=== PATIENT | female | born 1935 | race Caucasian/White ===

== ENCOUNTER 2017-09-14 21:28 | Emergency (ER) | payer MEDICARE ==
[~2017-09-14] VITALS: Ht 160 cm; Wt 66.2 kg
== END 2017-09-14 21:59 | disposition left against medical advice (07) ==
LOC: ER 21:28
DX: L03.811 Cellulitis of head [any part, except face] (principal)

== ENCOUNTER 2018-08-15 20:43 | Emergency (ER) | payer MEDICARE ==
[~2018-08-15] VITALS: Ht 160 cm; Wt 66.2 kg
--- NOTE | 2018-08-15 23:01 | Diagnostic Imaging Report ---
EXAMINATION: CHEST 2 VIEWS INDICATION: Chest pain. Shortness of breath. Coughing. COMPARISON: None FINDINGS: TUBES and LINES: None. LUNGS: Bilateral hyperinflation. Left basilar subsegmental atelectasis. Bilateral perihilar, peribronchial thickening. There is no evidence of pneumonia or pulmonary edema. PLEURA: No pleural effusion or pneumothorax. Biapical pleural-parenchymal scarring. HEART AND MEDIASTINUM: The cardiomediastinal silhouette is unremarkable. BONES AND SOFT TISSUES: No acute osseous lesion. Soft tissues are unremarkable. UPPER ABDOMEN: No free air under the diaphragm. IMPRESSION: Probable COPD. No consolidative pneumonia Signed by: Dr. La Young M.D. on 08/15/2018 10:58 PM
== END 2018-08-15 23:45 | disposition home or self-care (01) ==
LOC: ER 20:43
DX: R05 Cough (principal); J20.9 Acute bronchitis, unspecified; I10 Essential (primary) hypertension; F41.9 Anxiety disorder, unspecified; F32.9 Major depressive disorder, single episode, unspecified; K21.9 Gastro-esophageal reflux disease without esophagitis; Z98.0 Intestinal bypass and anastomosis status
CPT/HCPCS: 71046; 93005; 99282

== ENCOUNTER 2019-01-29 17:51 | Emergency (ER) | payer MEDICARE ==
[~2019-01-29] VITALS: Ht 160 cm; Wt 66.2 kg
--- OUTSIDE RECORDS SUMMARY | 2019-01-29 17:54 | XMS REPORT ---
Author Author [facility] Address Unknown Phone Unavailable Care Team Providers Care Design Engineer Name Role Phone Pat WALTER Unavailable Unavailable Problems This patient has no known problems. Allergies, Adverse Reactions, Alerts This patient has no known allergies or adverse reactions. Medications This patient has no known medications. Results Test Description Test Time Test Comments Text Results Atomic Results Result Comments CHEST 2 VIEWS 2018-08-15 22:56:00 [place] [address] Patient Name: PANCHO MORALES MR #: [id number] : 1935 Age/Sex: 83/F Req #: [id number] [facility] Physician: Ordered by: JOHANNY WALTER MD Report #: [id number] Location: ER Room/Bed: Procedure: [id number] DX/CHEST 2 VIEWS Exam Date: 08/15/18 Exam Time: 2147 REPORT STATUS: Signed EXAMINATION: CHEST 2 VIEWS INDICATION: Chest pain. Shortness of breath. Coughing. COMPARISON: None FINDINGS: TUBES and LINES: None. LUNGS: Bilateral hyperinflation. Left basilar subsegmental atelectasis. Bilateral perihilar, peribronchial thickening. There is no evidence of pneumonia or pulmonary edema. PLEURA: No pleural effusion or pneumothorax. Biapical pleural-parenchymal scarring. HEART AND MEDIASTINUM: The cardiomediastinal silhouette is unremarkable. BONES AND SOFT TISSUES: No acute osseous lesion. Soft tissues are unremarkable. UPPER ABDOMEN: No free air under the diaphragm. IMPRESSION: Probable COPD. No consolidative pneumonia Signed by: Dr. La Young M.D. on 08/15/2018 10:58 PM Dictated By: DEBRA YOUNG MD, MD 57 Transcribed By: YAKELIN on 08/15/182257 COPY TO: JOHANNY WALTER MD
[2019-01-29 19:06] VITALS: BP 161/72
== END 2019-01-29 19:08 | disposition home or self-care (01) ==
LOC: ER 17:51
DX: L02.01 Cutaneous abscess of face (principal); I10 Essential (primary) hypertension; F41.9 Anxiety disorder, unspecified; F32.9 Major depressive disorder, single episode, unspecified; K21.9 Gastro-esophageal reflux disease without esophagitis; Z98.0 Intestinal bypass and anastomosis status
CPT/HCPCS: 99282

== ENCOUNTER 2020-01-13 22:57 | Emergency (ER) | payer MEDICARE ==
[~2020-01-13] VITALS: Ht 160 cm; Wt 70.3 kg
[2020-01-14 00:19] LABS: BASOPHILS % 0.4 % (0.0-1.0); EOSINOPHILS # (AUTO) 0.1 (0.0-0.4); EOSINOPHILS % 1.2 % (0.0-6.0); HEMATOCRIT 42.1 % (34.2-44.1); HEMOGLOBIN 13.8 g/dL (12.0-16.0); LYMPHOCYTES # (AUTO) 1.3 (1.0-3.2); LYMPHOCYTES % 12.3 % (18.0-39.1); MEAN CORPUSCULAR HEMOGLOBIN 30.3 pg (28-32); MEAN CORPUSCULAR HGB CONC 32.8 g/dL (31-35); MEAN CORPUSCULAR VOLUME 92.5 fL (81-99); MONOCYTES # (AUTO) 0.7 (0.2-0.8); MONOCYTES % 6.5 % (4.4-11.3); NEUTROPHILS # (AUTO) 8.2 (2.1-6.9); NEUTROPHILS % 79.1 % (38.7-80.0); PLATELET COUNT 210 x10e3/uL (140-360); RED BLOOD COUNT 4.55 x10e6/uL (3.6-5.1)
[2020-01-14] MEDS ORDERED: SODIUM CHLORIDE 0.9% 1000ML 1,000 ML IV STA (00:32)
[2020-01-14] MEDS ORDERED: ONDANSETRON HCL INJ 2MG/ML 2ML 2 MG/ML VIAL IV STA (00:32)
[2020-01-14 00:36] LABS: ALBUMIN 4.1 g/dL (3.5-5.0); ALBUMIN/GLOBULIN RATIO 1.4 (0.8-2.0); ANION GAP 15.7 mmol/L (8-16); CREATININE, SERUM 0.94 mg/dL (0.57-1.11); POTASSIUM 3.7 mmol/L (3.5-5.1)
[2020-01-14 00:45] LABS: BILIRUBIN,URINE NEGATIVE (NEGATIVE); CLARITY,URINE CLEAR (CLEAR); COLOR,URINE YELLOW (YELLOW); KETONES,URINE NEGATIVE (NEGATIVE); LEUKOCYTE ESTERASE ,URINE SMALL (NEGATIVE); NITRITE,URINE NEGATIVE (NEGATIVE); PROTEIN,URINE DIPSTICK NEGATIVE (NEGATIVE); URINE UROBILINOGEN 0.2 mg/dL (0.2 - 1)
[2020-01-14 00:50] LABS: AMORPHOUS SEDIMENT,URINE MODERATE (FEW); BACTERIA,URINE FEW /HPF; EPITHELIAL CELLS,URINE FEW /LPF; RBC,URINE 0-5 /HPF (0-5)
[2020-01-14] MEDS ORDERED: CEFTRIAXONE SOD 1 GM/NS 50 ML 50 ML IV ONE ×2 (01:00→01:09)
--- NOTE | 2020-01-14 01:32 | Emergency Department Note ---
History of Present Illnes History of Present Illness Chief Complaint: Abdominal Complaints History of Present Illness This is a 84 year old female arrived to the ED with diffuse abdominal pain for several hours . Chief Complaint Comment pt c/o epigastric pain with nausea and vomiting that started about 1 month ago when she started taking tylenol with codeine that was prescribed by her dentist, pain started again at 1930 today Historian: Patient Arrival Mode: Car Onset (how long ago): hour(s) Radiation: Reports non-radiation Severity: mild Onset quality: sudden Duration (how long): hour(s) Timing of current episode: constant Progression: partially resolved Chronicity: new Relieving factors: none Past Medical/Family History Physician Review I have reviewed the patient's past medical and family history. Any updates have been documented here. Past Medical History Recent Fever: No Clinical Suspicion of Infectio: No New/Unexplained Change in Ment: No Past Medical History: GERD Other Medical History: ARTHRITIS GERD Past Surgical History: None Other Surgery: COLON SURGERY Social History Smoking Cessation: Never Smoker Other Last Tetanus: UTD Review of Systems ROS Narrative Unable to obtain ROS: Unable to obtain due to Review of Systems Constitutional: Reports no symptoms EENTM: Reports no symptoms Cardiovascular: Reports no symptoms Respiratory: Reports no symptoms Gastrointestinal: Reports as per HPI, Reports abdominal pain, Reports nausea Genitourinary: Reports no symptoms Musculoskeletal: Reports no symptoms Integumentary: Reports no symptoms Neurological: Reports no symptoms Psychological: Reports no symptoms Endocrine: Reports no symptoms Hematological/Lymphatic: Reports no symptoms Physical Exam Related Data Allergies: Coded Allergies: codeine (Verified Allergy, Unknown, 01/13/20) abdominal pain/nausea Triage Vital Signs Vital Signs Date Time Temp Pulse Resp B/P (MAP) Pulse Ox O2 Delivery O2 Flow Rate FiO2 01/13/20 23:33 98.2 93 20 169/72 97 Room Air Vital signs reviewed: Yes Physical Exam CONSTITUTIONAL Constitutional: Present well-developed, Present well-nourished HENT HENT: Present normocephalic, Present atraumatic, Present oropharynx clear/moist, Present nose normal HENT L/R: Present left ext ear normal, Present right ext ear normal EYES Eyes: Reports PERRL, Reports conjunctivae normal NECK Neck: Present ROM normal PULMONARY Pulmonary: Present effort normal, Present breath sounds normal CARDIOVASCULAR Cardiovascular: Present regular rhythm, Present heart sounds normal, Present capillary refill normal, Present normal rate GASTROINTESTINAL Abdominal: Present soft, Present nontender, Present bowel sounds normal GENITOURINARY Genitourinary: Present exam deferred SKIN Skin: Present warm, Present dry MUSCULOSKELETAL Musculoskeletal: Present ROM normal NEUROLOGICAL Neurological: Present alert, Present oriented x 3, Present no gross motor or sensory deficits PSYCHOLOGICAL Psychological: Present mood/affect normal, Present judgement normal Results Laboratory Result Diagram: 01/14/20 0000 01/14/20 0000 Laboratory Laboratory Tests Test 01/14/20 00:30 01/14/20 00:00 Urine Color Yellow (YELLOW) Urine Clarity Clear (CLEAR) Urine pH 8 (5 - 7) Urine Specific [place] 1.020 (1.010-1.025) Urine Protein Negative (NEGATIVE) Urine Glucose (UA) Negative (NEGATIVE) Urine Ketones Negative (NEGATIVE) Urine Blood Small (NEGATIVE) Urine Nitrite Negative (NEGATIVE) Urine Bilirubin Negative (NEGATIVE) Urine Urobilinogen 0.2 mg/dL (0.2 - 1) Urine Leukocyte Esterase Small (NEGATIVE) Urine RBC 0-5 /HPF (0-5) Urine WBC 6-10 /HPF (0-5) Urine Epithelial Cells Few /LPF (NONE) Urine Amorphous Sediment Moderate (FEW) Urine Bacteria Few /HPF (NONE) White Blood Count 10.41 x10e3/uL (4.8-10.8) Red Blood Count 4.55 x10e6/uL (3.6-5.1) Hemoglobin 13.8 g/dL (12.0-16.0) Hematocrit 42.1 % (34.2-44.1) Mean Corpuscular Volume 92.5 fL (81-99) Mean Corpuscular Hemoglobin 30.3 pg (28-32) Mean Corpuscular Hemoglobin Concent 32.8 g/dL (31-35) Red Cell Distribution Width 13.0 % (11.7-14.4) Platelet Count 210 x10e3/uL (140-360) Neutrophils (%) (Auto) 79.1 % (38.7-80.0) Lymphocytes (%) (Auto) 12.3 % (18.0-39.1) Monocytes (%) (Auto) 6.5 % (4.4-11.3) Eosinophils (%) (Auto) 1.2 % (0.0-6.0) Basophils (%) (Auto) 0.4 % (0.0-1.0) Neutrophils # (Auto) 8.2 (2.1-6.9) Lymphocytes # (Auto) 1.3 (1.0-3.2) Monocytes # (Auto) 0.7 (0.2-0.8) Eosinophils # (Auto) 0.1 (0.0-0.4) Basophils # (Auto) 0.0 (0.0-0.1) Absolute Immature Granulocyte (auto 0.05 x10e3/uL (0-0.1) Sodium Level 139 mmol/L (136-145) Potassium Level 3.7 mmol/L (3.5-5.1) Chloride Level 102 mmol/L (98-107) Carbon Dioxide Level 25 mmol/L (22-29) Anion Gap 15.7 mmol/L (8-16) Blood Urea Nitrogen 13 mg/dL (7-26) Creatinine 0.94 mg/dL (0.57-1.11) Estimat Glomerular Filtration Rate 57 ML/MIN (60-) BUN/Creatinine Ratio 14 (6-25) Glucose Level 142 mg/dL (74-118) Calcium Level 11.0 mg/dL (8.4-10.2) Total Bilirubin 0.6 mg/dL (0.2-1.2) Aspartate Amino Transf (AST/SGOT) 15 IU/L (5-34) Alanine Aminotransferase (ALT/SGPT) 13 IU/L (0-55) Alkaline Phosphatase 76 IU/L (40-150) Creatine Kinase 33 IU/L (29-168) Creatine Kinase MB 1.00 ng/mL (0-5.0) Troponin I 0.005 ng/mL (0-0.300) Total Protein 7.1 g/dL (6.5-8.1) Albumin 4.1 g/dL (3.5-5.0) Globulin 3.0 g/dL (2.3-3.5) Albumin/Globulin Ratio 1.4 (0.8-2.0) Lipase 19 U/L (8-78) Lab results reviewed: Yes Imaging Imaging results reviewed: Yes Impressions IMPRESSION: 1. No acute inflammatory process in the abdomen/pelvis. 2. Mild dilatation of small bowel loop at left abdominal anastomotic site, suggestive of mild stenosis. 3. 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 4. Mild biliary dilatation, likely due to postcholecystectomy reservoir effect. 5. Lung nodules as above. Recommend follow-up with chest CT in 6 months to ensure stability. Signed by: Dr. Ovidio Coleman MD on 01/14/2020 3:36 AM Assessment & Plan Medical Decision Making MDM 84-year-old female arrives to the ED with complaints of abdominal pain. Patient with a relatively benign abdomen. Patient noted to have a urinary tract infection. Patient's symptoms are likely secondary to her taking Tylenol with Codeine which oftentimes does not fill all of the stomach. Patient informed of these findings as well as lab work and imaging. Patient felt comfortable being discharged home. Patient has outpatient GI follow-up. Patient stable for discharge, tolerating oral intake at time of discharge. Assessment & Plan Final Impression: (1) UTI (urinary tract infection) Depart Disposition: HOME, SELF-CARE Last Vital Signs Date Time Temp Pulse Resp B/P (MAP) Pulse Ox O2 Delivery O2 Flow Rate FiO2 01/14/20 01:01 89 150/66 98 Room Air 01/13/20 23:33 98.2 20 Medications in the ED Sodium Chloride 1,000 ml @ 0 mls/hr Q0M STAT IV Last administered on 01/14/20at 01:06; Admin Dose 250 MLS/HR; Start 01/14/20 at 00:32; Stop 01/14/20 at 00:50; Status DC Ondansetron HCl 4 mg NOW STAT IV Last administered on 01/14/20at 01:06; Admin Dose 4 MG; Start 01/14/20 at 00:32; Stop 01/14/20 at 00:50; Status DC Ceftriaxone Sodium 50 ml @ 100 mls/hr ONCE ONCE IV Last administered on 01/14/20at 01:06; Admin Dose 100 MLS/HR; Start 01/14/20 at 01:00; Stop 01/14/20 at 01:29 Ceftriaxone Sodium 50 ml @ ud STK-MED ONCE IV ; Start 01/14/20 at 01:09; Stop 01/14/20 at 01:03; Status DC MAGGIE MENDOZA DO Jan 14, 2020 01:31
[2020-01-14] MEDS ORDERED: IOPAMIDOL 370 MG/ML 200 ML INFUS..BTL INJ ONE (02:50)
--- NOTE | 2020-01-14 03:40 | Diagnostic Imaging Report ---
EXAM: CT Abdomen and Pelvis WITH contrast INDICATION: ^diffuse abd pain ^[id number] ^0223 COMPARISON: None. TECHNIQUE: Abdomen and pelvis were scanned utilizing a multidetector helical scanner from the lung base to the pubic symphysis after administration of IV contrast. Coronal and sagittal reformations were obtained. Dose modulation, iterative reconstruction, and/or weight based adjustment of the mA/kV was utilized to reduce the radiation dose to as low as reasonably achievable. Routine protocol was performed. Scan was performed when during portal venous phase. IV CONTRAST: 100 mL of Isovue-370 ORAL CONTRAST: None COMPLICATIONS: None RADIATION DOSE: Total DLP: 384.86 mGy*cm Estimated effective dose: (DLP x 0.015 x size factor) mSv CTDIvol has been reviewed. It is below the limits set by the Radiation Protocol Committee (RPC). FINDINGS: LINES and TUBES: None. LOWER THORAX: 0.9 cm right middle lobe nodule. There are additional peripheral right base nodules as seen on series 2, image 17. Mild right middle lobe scarring and traction bronchiectasis. HEPATOBILIARY: No hepatic mass. Tiny hepatic dome hypodensity is too small to characterize. Mild biliary ductal dilation, likely due to reservoir effect. GALLBLADDER: Surgically absent. SPLEEN: No splenomegaly. PANCREAS: No focal masses or ductal dilatation. ADRENALS: No adrenal nodules KIDNEYS/URETERS: Kidneys enhance symmetrically. No hydronephrosis. No renal mass. 2.1 cm right midpole cyst. Mild inferiorly displaced right kidney. No stones. GI TRACT: Second portion duodenal diverticulum. Left mid abdominal small bowel anastomosis with mild dilatation of small bowel at the anastomotic site. There is also ascending colon suture line. Appendix is not clearly visualized. PELVIC ORGANS/BLADDER: Bladder is unremarkable. Hysterectomy. LYMPH NODES: No lymphadenopathy. VESSELS: There is mild atherosclerotic disease in the aorta and major arterial branches. PERITONEUM / RETROPERITONEUM: No free air or fluid. BONES: Lumbar spine scoliosis with multilevel degenerative changes. Grade 1 retrolisthesis of L5 in relation to L4. SOFT TISSUES: Small fat-containing left inguinal hernia. IMPRESSION: 1. No acute inflammatory process in the abdomen/pelvis. 2. Mild dilatation of small bowel loop at left abdominal anastomotic site, suggestive of mild stenosis. 3. 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 4. Mild biliary dilatation, likely due to postcholecystectomy reservoir effect. 5. Lung nodules as above. Recommend follow-up with chest CT in 6 months to ensure stability. Signed by: Dr. Ovidio Coleman MD on 01/14/2020 3:36 AM
== END 2020-01-14 04:14 | disposition home or self-care (01) ==
LOC: ER 01-14 00:07
DX: R10.13 Epigastric pain (principal); R11.2 Nausea with vomiting, unspecified; N39.0 Urinary tract infection, site not specified; K21.9 Gastro-esophageal reflux disease without esophagitis
CPT/HCPCS: 36415; 74177; 80053; 81001; 82550; 82553; 83690; 84484; 85025; 93005; 99284; J0696; J2405; J7030; Q9967

== ENCOUNTER 2020-11-04 18:22 | Emergency (ER) | payer MEDICARE ==
[~2020-11-04] VITALS: Ht 160 cm; Wt 70.3 kg
[2020-11-04] MEDS ORDERED: SODIUM CHLORIDE 0.9% 1000ML 1,000 ML IV STA (18:31)
[2020-11-04] MEDS ORDERED: ONDANSETRON HCL INJ 2MG/ML 2ML 2 MG/ML VIAL IV NR (18:31)
[2020-11-04 19:05] LABS: BASOPHILS % 0.2 % (0.0-1.0); EOSINOPHILS # (AUTO) 0.1 (0.0-0.4); HEMATOCRIT 43.7 % (34.2-44.1); HEMOGLOBIN 14.7 g/dL (12.0-16.0); LYMPHOCYTES # (AUTO) 0.6 (1.0-3.2); LYMPHOCYTES % 5.3 % (18.0-39.1); MEAN CORPUSCULAR HEMOGLOBIN 31.3 pg (28-32); MEAN CORPUSCULAR HGB CONC 33.6 g/dL (31-35); MONOCYTES # (AUTO) 0.5 (0.2-0.8); MONOCYTES % 4.7 % (4.4-11.3); NEUTROPHILS # (AUTO) 10.1 (2.1-6.9); NEUTROPHILS % 88.5 % (38.7-80.0); PLATELET COUNT 210 x10e3/uL (140-360); RED CELL DISTRIBUTION WIDTH 12.6 % (11.7-14.4)
[2020-11-04 19:42] LABS: CLARITY,URINE CLEAR (CLEAR); COLOR,URINE YELLOW (YELLOW); KETONES,URINE NEGATIVE (NEGATIVE); LEUKOCYTE ESTERASE ,URINE NEGATIVE (NEGATIVE); NITRITE,URINE NEGATIVE (NEGATIVE); PROTEIN,URINE DIPSTICK TRACE (NEGATIVE); URINE UROBILINOGEN 0.2 mg/dL (0.2 - 1)
[2020-11-04 19:53] LABS: BACTERIA,URINE MODERATE /HPF; RBC,URINE >50 /HPF (0-5)
[2020-11-04 19:54] LABS: EPITHELIAL CELLS,URINE FEW /LPF; MUCUS,URINE MANY (RARE)
[2020-11-04 20:01] LABS: ALANINE AMINOTRANSFERASE 10 IU/L (0-55); ALBUMIN 4.3 g/dL (3.5-5.0); ALBUMIN/GLOBULIN RATIO 1.3 (0.8-2.0); ALKALINE PHOSPHATASE 80 IU/L (40-150); ANION GAP 16.1 mmol/L (8-16); BLOOD UREA NITROGEN 15 mg/dL (7-26); BUN/CREATININE RATIO 16 (6-25); CALCIUM 9.7 mg/dL (8.4-10.2); CARBON DIOXIDE 25 mmol/L (22-29); CHLORIDE 103 mmol/L (98-107); CREATINE KINASE 21 IU/L (29-168); CREATININE, SERUM 0.91 mg/dL (0.57-1.11); EST GLOMERULAR FILTRATION RATE 59 ML/MIN (60-); GLUCOSE 131 mg/dL (74-118); LIPASE 11 U/L (8-78); POTASSIUM 4.1 mmol/L (3.5-5.1); SODIUM 140 mmol/L (136-145)
[2020-11-04] MEDS ORDERED: IOPAMIDOL 370 MG/ML 200 ML INFUS..BTL INJ ONE (20:20)
[2020-11-04] MEDS ORDERED: SODIUM CHLORIDE 0.9% 50ML 50 ML ONE (20:20)
[2020-11-04] MEDS ORDERED: CIPROFLOXACIN 500 MG TAB PO STA (20:39)
[2020-11-04] MEDS ORDERED: ACETAMINOPHEN 325 MG TAB PO STA (22:07)
[2020-11-04] MEDS ORDERED: ONDANSETRON ODT4 MG PO (22:09)
[2020-11-04] MEDS ORDERED: CIPRO500 MG PO (22:09)
[2020-11-04] MEDS ORDERED: PEPCID20 MG PO (22:09)
== END 2020-11-04 22:43 | disposition home or self-care (01) ==
LOC: ER 18:32
DX: R11.2 Nausea with vomiting, unspecified (principal); R10.84 Generalized abdominal pain; N39.0 Urinary tract infection, site not specified; K21.9 Gastro-esophageal reflux disease without esophagitis
CPT/HCPCS: 36415; 71045; 74177; 80053; 81001; 82550; 82553; 83690; 84484; 84702; 85025; 93005; 99284; J2405; J7030; Q9967

== ENCOUNTER 2024-08-26 12:07 | Emergency (ER) | payer MEDICARE ==
[~2024-08-26] VITALS: Ht 160 cm; Wt 70.3 kg
[~2024-08-26 12:07] MED LIST: CIPRO500 MG PO; ONDANSETRON ODT4 MG PO; PEPCID20 MG PO
[2024-08-26 12:54] VITALS: PULSE 74; RESP 17; TEMP 98.7
[2024-08-26 15:10] VITALS: BP 174/86; PULSE 68; RESP 17; TEMP 97.8; O2SAT 100
== END 2024-08-26 15:12 | disposition home or self-care (01) ==
LOC: ER 13:00
DX: M25.522 Pain in left elbow (principal); M25.552 Pain in left hip; S70.02XA Contusion of left hip, initial encounter; W01.0XXA Fall on same level from slipping, tripping and stumbling without subsequent striking against object, initial encounter; Y93.01 Activity, walking, marching and hiking; Y92.89 Other specified places as the place of occurrence of the external cause; K21.9 Gastro-esophageal reflux disease without esophagitis; M13.88 Other specified arthritis, other site; Z87.19 Personal history of other diseases of the digestive system
CPT/HCPCS: 99283